=== PATIENT | female | born 1945 | race Caucasian/White ===

== ENCOUNTER → 2017-07-06 | Outpatient (CLI) | payer OTHER ==
[2014-11-03 09:35] VITALS: BP 155/65
[~2017-07-06] MED LIST: CHOL200074 PO; LISI1TAB5 PO; MOXI3DRO2 LEFTEYE; MOXI3DRO2 RIGHTEYE; NEPA1.7D LEFTEYE; NEPA1.7D RIGHTEYE; OMEP20CA5 PO; PRAV40TA2 PO; PRED5DRO16 LEFTEYE; PRED5DRO16 RIGHTEYE
--- NOTE | 2017-07-06 11:39 | RAD ---
EXAM: MAMMO SABINA SCREENING BILATERAL HISTORY: Routine Screening. COMPARISON: 07/04/2016 Standard mammographic views are obtained of the bilateral breasts. Additionally three-dimensional tomographic images obtained. This study was interpreted with the benefit of Computerized Aided Detection (CAD). FINDINGS: The breast parenchyma is heterogeneously dense, which could reduce sensitivity of mammography. Breast parenchyma level C.. There is no definite new suspicious spiculated mass or worrisome new cluster of microcalcifications. Repeat demonstration of some benign-appearing calcifications. IMPRESSION: No definite new suspicious mass. BI-RADS CATEGORY: 2 BENIGN FINDING RECOMMENDED FOLLOW-UP: 12M 12 MONTH FOLLOW-UP PQRS compliance statement: Patient information was entered into a reminder system with a target due date for the next mammogram. Mammography is a sensitive method for finding small breast cancers, but it does not detect them all and is not a substitute for careful clinical examination. A negative mammogram does not negate a clinically suspicious finding and should not result in delay in biopsying a clinically suspicious abnormality. "Our facility is accredited by the [employer] Mammography Program."
== END | disposition home or self-care (01) ==
LOC: MAMMO 09:01
PROVIDERS: ATTEND Family Medicine
DX: Z12.31 Encounter for screening mammogram for malignant neoplasm of breast (principal)
CPT/HCPCS: 77063; G0202; 77067

== ENCOUNTER 2017-09-10 09:55 | Inpatient (IN) | payer OTHER ==
[~2017-09-10] VITALS: Ht 160 cm; Wt 77.6 kg
--- NOTE | 2017-09-10 10:26 | PHYS DOC ---
Adult General Chief Complaint Chief Complaint: EARACHE/EAR PAIN HPI HPI CC: left facial rash and pain. History of present illness: 72-year-old female with a history of high blood pressure presenting to the emergency department today with a rash over the past 3 days on the side of her face and ear. The patient was seen on Sunday at her primary care physician's office who prescribed the patient prednisone and Keflex. She reports her rash and pain are worsening. She reports pain that is worse when she opens her mouth and difficulty putting her hearing aid in. The pain as a sharp shooting pain that is constant and nonradiating. The patient denies starting any medications prior to the rash formation. Past medical history diabetes high cholesterol high blood pressure and GERD Allergies reviewed Social history occasionally Review of systems is negative for chest pain shortness of breath abdominal pain nausea vomiting diaphoresis. She denies slurred speech difficulty speaking, vision changes, or any numbness weakness or tingling of her upper or lower extremities. She denies any gait disturbances. She denies any nuchal rigidity or decreased range of motion of the neck. All other review of systems is negative unless otherwise noted in history of present illness. ED course: 72-year-old female presenting to the emergency department today with cellulitis of the left side of the face including the ear. Patient is 2 days in to a course of Keflex for cellulitis of the left face and ear. On arrival the patient is afebrile with mild tachycardia likely secondary to pain. On examination the patient she has a macular rash involving the ear and part of the left face. On examination of the external auditory canal there is swelling with mild drainage. Tympanic membrane is normal. No evidence of otitis media. There is no fluctuance or mass in the postauricular region. Blood work obtained along with CT. work shows leukocytosis. EKG reviewed and unremarkable. CT the head shows no other acute underlying abscess formation or complications. I discussed the case with the patient's primary care physician Dr. IRIZARRY who would like to admit the patient for IV antibiotic therapy and monitoring. The patient was then admitted after getting IV Unasyn in the emergency department for further evaluation workup and care.I have assessed this patient clinically and believe that their condition requires an admission to the hospital. After consulting the admitting physician about this case, they have asked that I admit this patient to their service as an inpatient based on the clinical presentation and my impression. Review of Systems Review of Systems SEE ABOVE. Current Medications Current Medications Current Medications Medications (Trade) Dose Ordered Sig/Janet Start Time Stop Time Status Last Admin Dose Admin Ibuprofen (Motrin) 400 mg 1X ONCE 09/10/17 10:15 09/10/17 10:16 UNV Allergies Allergies Allergies Coded Allergies Type Severity Reaction Last Updated Verified acetaminophen Allergy Intermediate Nausea and Vomiting 10/09/14 Yes hydrocodone Allergy Intermediate Nausea and Vomiting 10/09/14 Yes tramadol Allergy Intermediate Nausea and Vomiting 10/09/14 Yes Physical Exam Physical Exam SEE ABOVE Constitutional: Well developed, well nourished, no acute distress, non-toxic appearance. [] HENT: Normocephalic, atraumatic, bilateral external ears normal, oropharynx moist, no oral exudates, nose normal. Patient has mild macular rash as above. Eyes: PERRLA, EOMI, conjunctiva normal, no discharge. [] Neck: Normal range of motion, no tenderness, supple, no stridor. Negative Brudzinski sign. Negative Kernig sign. Cardiovascular:mildly tachy with a regular rhythm. Lungs & Thorax: Bilateral breath sounds clear to auscultation [] Abdomen: Bowel sounds normal, soft, no tenderness, no masses, no pulsatile masses. [] Skin: Warm, dry, as above. Back: No tenderness, no CVA tenderness. [] Extremities: No tenderness, no cyanosis, no clubbing, ROM intact, no edema. [] Neurologic: Alert and oriented X 3, normal motor function, normal sensory function, no focal deficits noted. [] Psychologic: Affect normal, judgement normal, mood normal. [] EKG EKG [] Radiology/Procedures Radiology/Procedures [] Course & Med Decision Making Course & Med Decision Making Pertinent Labs and Imaging studies reviewed. (See chart for details) [] Dragon Disclaimer Dragon Disclaimer This electronic medical record was generated, in whole or in part, using a voice recognition dictation system. Departure Departure: Impression: Primary Impression: Cellulitis of ear Additional Impression: Cellulitis, face Disposition: ADMITTED INPATIENT Condition: STABLE Referrals: DALIA IRIZARRY MD (PCP) Patient Instructions: Cellulitis Problem Qualifiers RADHA CHISHOLM MD Sep 10, 2017 10:26
[2017-09-10] MEDS ORDERED: IV NORMAL SALINE 500ML 500 ML IV ONE (10:30)
[2017-09-10] MEDS ORDERED: AMPICILLIN/SULBACTAM 3 GM in IV NORMAL SALINE 100ML 100 ML IV ONE (10:30)
[2017-09-10 10:31] LABS: BASO # 0.1 x10^3/uL (0.0-0.2); BASO % 0 % (0-3); EOS # 0.2 x10^3/uL (0.0-0.7); EOS % 1 % (0-3); HEMATOCRIT 37.3 % (36.0-47.0); HEMOGLOBIN 12.6 g/dL (12.0-15.5); LYMPH # 2.4 x10^3/uL (1.0-4.8); LYMPH % 17 % (24-48); MEAN CORPUSCULAR HEMOGLOBIN 28 pg (25-35); MEAN CORPUSCULAR HGB CONC 34 g/dL (31-37); MEAN CORPUSCULAR VOLUME 84 fL (79-100); MONO # 1.1 x10^3/uL (0.0-1.1); MONO % 8 % (0-9); NEUT # 10.9 x10^3uL (1.8-7.7); NEUT % 74 % (31-73); PLATELET COUNT 281 x10^3/uL (140-400); RED BLOOD COUNT 4.42 x10^6/uL (3.50-5.40); RED CELL DISTRIBUTION WIDTH 14.1 % (11.5-14.5); WHITE BLOOD COUNT 14.7 x10^3/uL (4.0-11.0)
[2017-09-10 10:35] LABS: CALCIUM 9.9 mg/dL (8.5-10.1); CREATININE 1.2 mg/dL (0.6-1.0); GFR 44.3; POTASSIUM 3.5 mmol/L (3.5-5.1)
[2017-09-10] MEDS ORDERED: IBUPROFEN 400 MG TABLET. PO ONE (10:40)
[2017-09-10] MEDS ORDERED: AMPICILLIN/SULBACTAM IV Push 3 GM VIAL. IVP ONE (11:00)
[2017-09-10] MEDS ORDERED: IOHEXOL 300 MG/ML 75 ML VIAL. IV ONE (11:05)
--- NOTE | 2017-09-10 11:41 | EKG ---
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
--- NOTE | 2017-09-10 12:17 | RAD ---
CT HEAD WITHOUT CONTRAST History: left facial and ear cellulitis, eval for deeper abscess formation Comparison: None. Procedure: Axial images are obtained of the head from the skull base through the vertex with and without IV contrast. Axial imaging of the face was obtained with contrast. Coronal and sagittal reconstructions were performed. 70 mL of Omni 300 was utilized for the exam. Head Findings: No abnormal enhancement seen. Rodriguez-white matter differentiation is preserved. The ventricles and sulci are normal for the patient's age.. No mass-effect, midline shift, hemorrhage or obvious acute infarction is identified. Basilar cisterns are patent. Bone windows demonstrate no significant calvarial abnormality.The visualized paranasal sinuses appear clear. Mastoid air cells are well aerated. Face Findings: Mild left auricular skin thickening and enhancement. No organized fluid collection. There is no acute facial bone fracture. The paranasal sinuses are clear. The orbits are normal. The globes are intact. The nasal septum is mostly midline. The ostiomeatal complexes are narrow but patent. IMPRESSION: Mild left auricular skin thickening and enhancement consistent with given history of cellulitis. No organized fluid collection. PQRS Compliance Statement: One or more of the following individualized dose reduction techniques were utilized for this examination: 1. Automated exposure control 2. Adjustment of the mA and/or kV according to patient size 3. Use of iterative reconstruction technique
[2017-09-10] MEDS ORDERED: ONDANSETRON PF 4 MG/2 ML VIAL. IV PRN (12:30)
[2017-09-10 13:26] VITALS: BP 147/69
[2017-09-10 13:27] VITALS: BP 147/69
[2017-09-10] MEDS: IV NORMAL SALINE 1,000ML 1,000 ML IV SCH ×2 (13:27→22:51)
[2017-09-10] MEDS ORDERED: PRAV20TA2 PO (14:31)
[2017-09-10] MEDS ORDERED: METF500T4 PO (14:31)
[2017-09-10] MEDS ORDERED: CEPH500C PO (14:31)
[2017-09-10] MEDS ORDERED: PRED-220 PO (14:31)
[2017-09-10] MEDS ORDERED: LISI1TAB3 PO (14:31)
[2017-09-10 16:11] VITALS: BP 150/66
[2017-09-10] MEDS: IBUPROFEN 600 MG TABLET. PO PRN ×2 (17:36→23:50)
[2017-09-10] MEDS: AMPICILLIN/SULBACTAM IV Push 3 GM VIAL. IVP SCH ×2 (17:37→23:50)
[2017-09-10] MEDS ORDERED: AMPICILLIN/SULBACTAM 3 GM in IV NORMAL SALINE 100ML 100 ML IV SCH (18:00)
[2017-09-10 19:50] VITALS: BP 142/68
--- NOTE | 2017-09-10 20:42 | HP ---
ADMIT DATE: 09/10/2017 HISTORY OF PRESENT ILLNESS: A 72-year-old female came in through the Emergency Room. She has severe infection, cellulitis or erysipelas to her left side of her face. The patient apparently was treated as an outpatient, but failed that she has a lot of pain to that area. She has been given Keflex without any success; as a result of this, the patient was admitted to the hospital for further evaluation and treatment thereof for this. PAST MEDICAL HISTORY: Type 2 diabetes, hypercholesterolemia, hypertension, and GERD. Her other medical history shows bilateral hearing aids. 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 Medical symptoms, wears dentures and glasses, and pneumococcal vaccine up-to-date. We will go ahead and continue to monitor the patient accordingly, make further evaluation on her all those issues as well. ALLERGIES: HYDROCODONE, ACETAMINOPHEN and TRAMADOL. FAMILY HISTORY: Noncontributory. SOCIAL HISTORY: The patient denies smoking, alcohol or drug use. SOCIAL HISTORY: The patient denies smoking, alcohol or drug use. REVIEW OF SYSTEMS: The patient denies any recent weight loss, weight gain. She denies any headaches, vision change, blurred vision, double vision. She does have pain to the left side of her face, neck area consistent with erysipelas. LUNGS: The patient's lungs are clear to auscultation. CARDIOVASCULAR: Regular sinus rhythm, S1, S2, without murmur, rub, thrill, or extra heart sounds. ABDOMEN: Soft, nontender, no organomegaly. Positive bowel sounds, no hepatosplenomegaly, without clubbing, cyanosis or edema. NEUROLOGIC: The patient was alert and oriented x 3. The patient was admitted to the hospital for further evaluation. PHYSICAL EXAMINATION: VITAL SIGNS: His blood pressure was 147/70, respiratory rate 20, pulse 77, temperature 98, pulse has been as high as 102. HEENT: Atraumatic, normocephalic. Eyes: PERRLA without jaundice. Left side of the face swollen and tender redness. RESPIRATORY: Lungs are diminished, but clear. CARDIOVASCULAR: Regular sinus rhythm. ABDOMEN: Soft, nontender, no rebound or guarding. Positive bowel sounds, no hepatosplenomegaly. No extra clubbing, cyanosis, or edema. NEUROLOGIC: The patient was alert and oriented x 3. RECOMMENDATIONS: Erysipelas, cellulitis, failure of outpatient therapy, type 2 diabetes. The patient will be admitted, IV antibiotic therapy, continue with monitoring cellulitis and make further evaluation on her as indicated. DALIA IRIZARRY MD DR: URIEL/fabiano JOB#: [id number] / [id number]
[2017-09-10 22:34] VITALS: BP 133/92
[2017-09-11 05:11] VITALS: BP 133/88
[2017-09-11] MEDS: IBUPROFEN 600 MG TABLET. PO PRN ×2 (05:52→12:12)
[2017-09-11] MEDS: AMPICILLIN/SULBACTAM IV Push 3 GM VIAL. IVP SCH ×2 (05:52→12:07)
[2017-09-11] MEDS: IV NORMAL SALINE 1,000ML 1,000 ML IV SCH (05:53)
[2017-09-11 06:28] LABS: BASO # 0.1 x10^3/uL (0.0-0.2); BASO % 1 % (0-3); EOS # 0.3 x10^3/uL (0.0-0.7); EOS % 3 % (0-3); HEMATOCRIT 32.2 % (36.0-47.0); HEMOGLOBIN 10.8 g/dL (12.0-15.5); LYMPH % 34 % (24-48); MEAN CORPUSCULAR HEMOGLOBIN 29 pg (25-35); MEAN CORPUSCULAR HGB CONC 34 g/dL (31-37); MEAN CORPUSCULAR VOLUME 85 fL (79-100); MONO # 0.7 x10^3/uL (0.0-1.1); MONO % 7 % (0-9); NEUT # 4.9 x10^3uL (1.8-7.7); NEUT % 55 % (31-73); PLATELET COUNT 250 x10^3/uL (140-400); RED CELL DISTRIBUTION WIDTH 14.4 % (11.5-14.5); WHITE BLOOD COUNT 8.9 x10^3/uL (4.0-11.0)
[2017-09-11 06:33] LABS: CALCIUM 8.6 mg/dL (8.5-10.1); CREATININE 0.9 mg/dL (0.6-1.0); GFR 61.7; POTASSIUM 3.8 mmol/L (3.5-5.1)
[2017-09-11] MEDS ORDERED: hydroCHLOROthiazide 12.5 MG CAPSULE PO SCH (09:00)
[2017-09-11] MEDS ORDERED: LISINOPRIL 10 MG TABLET PO SCH (09:00)
[2017-09-11 11:03] VITALS: BP 118/80
[2017-09-11] MEDS ORDERED: AMOX1TAB61 PO (13:44)
[2017-09-11 17:08] LABS: HEMOGLOBIN A1C 5.8 % (4.8-5.6)
== END 2017-09-11 14:45 | disposition home health service (06) | DRG 872 ==
LOC: ER 09:55 → 1 SOUTH 13:08
PROVIDERS: ADMIT Family Medicine; ATTEND Family Medicine
DX: A41.9 Sepsis, unspecified organism (principal); L03.211 Cellulitis of face; E11.9 Type 2 diabetes mellitus without complications; A46 Erysipelas; E78.00 Pure hypercholesterolemia, unspecified; E66.9 Obesity, unspecified; I10 Essential (primary) hypertension; H60.12 Cellulitis of left external ear; M19.90 Unspecified osteoarthritis, unspecified site; K21.9 Gastro-esophageal reflux disease without esophagitis; Z87.442 Personal history of urinary calculi; Z90.710 Acquired absence of both cervix and uterus; Z68.30 Body mass index [BMI] 30.0-30.9, adult; Z88.8 Allergy status to other drugs, medicaments and biological substances
CPT/HCPCS: 36415; 70496; 80048; 83036; 83605; 84484; 85025; 85651; 93005; 96361; 96374; J0295; J7040; Q9967; 99285-25; J7030

== ENCOUNTER → 2018-07-08 | Outpatient (CLI) | payer OTHER ==
[~2018-07-08] MED LIST changes: +AMOX1TAB61 PO; +CEPH500C PO; +LISI1TAB3 PO; +METF500T16 PO; +PRAV20TA2 PO; +PRED-220 PO
--- NOTE | 2018-07-08 09:25 | RAD ---
History: Routine Screening. Technique: Bilateral digital mammographic routine views were obtained with CAD - computer aided detection. Comparison: Previous mammogram from 2017 and 2014. Findings: Breast Tissue Density C: The breast tissue is heterogeneously dense. Mammography is less sensitive in areas of dense tissue. There are no suspicious masses, microcalcifications or areas of architectural distortion. Benign-appearing calcifications in the right breast. Impression: No mammographic evidence of malignancy. Stable mammogram. BI-RADS Category 2: Benign findings. Continued annual screening. . A mammogram does not have 100% sensitivity and therefore a negative imaging study should not delay further work up of a suspicious abnormality. The patient will receive a letter with the results in the mail. Patient information is entered into the reminder system with a target due date for the next screening mammogram. The patient will receive a reminder. "Our facility is accredited by the [employer] Mammography Program."
== END | disposition home or self-care (01) ==
LOC: MAMMO 08:14
PROVIDERS: ATTEND Family Medicine
DX: Z12.31 Encounter for screening mammogram for malignant neoplasm of breast (principal)
CPT/HCPCS: 77067

== ENCOUNTER 2021-06-24 14:23 | Emergency (ER) | payer MEDICARE, OTHER ==
[~2021-06-24] VITALS: Ht 160 cm; Wt 73.0 kg
[~2021-06-24 14:23] MED LIST changes: +LISI1TAB23 PO; -LISI1TAB3 PO; +LISI1TAB37 PO; -LISI1TAB5 PO; +MOXI3DRO18 LEFTEYE; +MOXI3DRO18 RIGHTEYE; -MOXI3DRO2 LEFTEYE; -MOXI3DRO2 RIGHTEYE
--- NOTE | 2021-06-24 14:38 | PHYS DOC ---
Past History Past Medical History: Diabetes, Hypertension Past Surgical History: Hip Replacement, Hysterectomy Alcohol Use: None Drug Use: None Adult General Chief Complaint Chief Complaint: CHEST PAIN HPI HPI Patient is a 76-year-old female presenting for chest pain. Onset was 3 hours prior to arrival. Patient reports she was in her living room and was getting up to mobilize around the house when she developed substernal chest pressure that radiated to her back. Reports it is 8/10 in severity pressure that has been constant and took her breath away. Nothing known makes better or worse. She reports history of high blood pressure and hypercholesterol for which she is on medications, has been compliant with these and has had no major changes in baseline health. She is fully vaccinated against COVID-19, denies any recent mechanism of injury, trauma, ingestion, travel or other potential exposure. She has no known history of cardiovascular disease or blood clots Review of Systems Review of Systems Fourteen body systems of review of systems have been reviewed. See HPI for pertinent positives and negative responses, other [place] all other systems are negative, non-pertinent or non-contributory Allergies Allergies Allergies Coded Allergies Type Severity Reaction Last Updated Verified acetaminophen Allergy Intermediate Nausea and Vomiting 10/09/14 Yes hydrocodone Allergy Intermediate Nausea and Vomiting 10/09/14 Yes tramadol Allergy Intermediate Nausea and Vomiting 10/09/14 Yes Physical Exam Physical Exam Constitutional: Well developed, well nourished, appears anxious but is non-toxic in appearance. HENT: Normocephalic, atraumatic, bilateral external ears normal, oropharynx moist, no oral exudates, nose normal. Eyes: PERRLA, EOMI, conjunctiva normal, no discharge. Neck: Normal range of motion, no tenderness, supple, no stridor. Cardiovascular: Heart rate regular, sinus rhythm, no murmurs rubs or gallops Lungs & Thorax: Bilateral breath sounds clear to auscultation Abdomen: Bowel sounds normal, soft, no tenderness, no masses, no pulsatile masses. Nonsurgical abdomen, no peritoneal signs Skin: Warm, dry, no erythema, no rash. Back: No tenderness, no CVA tenderness. Extremities: No tenderness, no cyanosis, no clubbing, ROM intact, no edema. Neurologic: Alert and oriented X 3, grossly normal motor & sensory function, no focal deficits noted. Psychologic: Anxious affect and mood Current Patient Data Vital Signs Vital Signs Date Time Temp Pulse Resp B/P (MAP) Pulse Ox O2 Delivery O2 Flow Rate FiO2 06/24/21 14:29 97.8 90 20 185/84 (117) 99 Room Air Lab Results Laboratory Tests Test 06/24/21 14:40 White Blood Count 12.1 x10^3/uL Red Blood Count 3.99 x10^6/uL Hemoglobin 10.6 g/dL Hematocrit 32.4 % Mean Corpuscular Volume 81 fL Mean Corpuscular Hemoglobin 27 pg Mean Corpuscular Hemoglobin Concent 33 g/dL Red Cell Distribution Width 14.9 % Platelet Count 368 x10^3/uL Neutrophils (%) (Auto) 64 % Lymphocytes (%) (Auto) 26 % Monocytes (%) (Auto) 8 % Eosinophils (%) (Auto) 2 % Basophils (%) (Auto) 1 % Neutrophils # (Auto) 7.8 x10^3uL Lymphocytes # (Auto) 3.1 x10^3/uL Monocytes # (Auto) 0.9 x10^3/uL Eosinophils # (Auto) 0.2 x10^3/uL Basophils # (Auto) 0.1 x10^3/uL Prothrombin Time 9.9 SEC Prothromb Time International Ratio 1.0 Activated Partial Thromboplast Time 25 SEC Sodium Level 138 mmol/L Potassium Level 3.4 mmol/L Chloride Level 101 mmol/L Carbon Dioxide Level 25 mmol/L Anion Gap 12 Blood Urea Nitrogen 17 mg/dL Creatinine 1.5 mg/dL Estimated GFR (Cockcroft-Gault) 33.9 BUN/Creatinine Ratio 11 Glucose Level 194 mg/dL Calcium Level 10.4 mg/dL Total Bilirubin 0.4 mg/dL Aspartate Amino Transf (AST/SGOT) 13 U/L Alanine Aminotransferase (ALT/SGPT) 19 U/L Alkaline Phosphatase 109 U/L Troponin I Quantitative < 0.017 ng/mL DD-Www-F-Type Natriuretic Peptide 67 pg/mL Total Protein 8.0 g/dL Albumin 3.5 g/dL Albumin/Globulin Ratio 0.8 Current Medications Medications (Trade) Dose Ordered Sig/Janet Route PRN Reason Start Time Stop Time Status Last Admin Dose Admin Iohexol (Omnipaque 350 Mg/ml) 100 ml 1X ONCE IV 06/24/21 15:00 06/24/21 15:01 DC 06/24/21 15:20 Info (Do NOT chart on this entry -- for MONITORING) 1 each PRN DAILY PRN MC SEE COMMENTS 06/24/21 15:00 06/26/21 14:59 Aspirin (Aspirin Chewable) 162 mg 1X ONCE PO 06/24/21 15:00 06/24/21 15:01 DC 06/24/21 14:59 Nitroglycerin (Nitrostat) 0.4 mg PRN Q5MIN PRN SL CHEST PAIN 06/24/21 15:00 06/24/21 15:16 Sodium Chloride 1,000 ml @ 1,000 mls/hr 1X ONCE IV 06/24/21 15:15 06/24/21 16:14 06/24/21 15:33 EKG EKG EKG ordered and interpreted by myself at 1436 hrs. is sinus rhythm at 91 bpm, unremarkable intervals, no axis deviation, no obvious ischemic findings, no STEMI Radiology/Procedures Radiology/Procedures AP chest. HISTORY: Chest pressure AP view was taken of the chest. There is arthritis in both shoulders. Lungs are free of infiltrates. Heart is normal in size. There is no effusion. IMPRESSION: 1. No acute infiltrates. Electronically signed by: Isaiah Morgan MD (06/24/2021 3:10 PM) [facility] /////////////////////////// CTA OF THE CHEST WITH AND WITHOUT CONTRAST Clinical indications: Substernal chest pain. Technique: Noncontrast axial localizer was performed. After IV infusion of 75 cc of Omnipaque 350, helical CT scanning of the chest was performed using the CTA pulmonary embolism protocol. Coronal and sagittal MIP reconstructions were generated. PQRS compliance Statement One or more of the following individualized dose reduction techniques were utilized for this study: 1. Automated exposure control 2. Adjustment of the mA and/or kV according to patient size 3. Use of iterative reconstruction technique Comparison: None available Findings: No pulmonary embolism is evident. No focal aneurysmal dilatation or dissection of the thoracic aorta is seen. Calcified atheromatous disease of the coronary arteries is seen. Heart size is normal and no pericardial effusion is seen. Tiny hiatal hernia is evident. No enlarged thoracic lymphadenopathy is evident. No adrenal mass is seen. No pleural effusion or pneumothorax is seen. No lung mass or lung consolidation is seen. The proximal bronchial tree is patent. No adrenal mass is evident. No lytic process is seen. IMPRESSION: No pulmonary embolism. No acute infiltrate. Tiny hiatal hernia. Calcified atheromatous disease of the coronary arteries. Electronically signed by: Nilton Melissa MD (06/24/2021 3:54 PM) [id number] Heart Score C/O Chest Pain: Yes HEART Score for Chest Pain: HEART Score for Chest Pain Response (Comments) Value History Moderately Suspicious 1 ECG Normal 0 Age > 65 2 Risk Factors 1 or 2 Risk Factors 1 Troponin < Normal Limit 0 Total 4 Risk Factors: Risk Factors: DM, Current or recent (<one month) smoker, HTN, HLP, family history of CAD, obesity. Risk Scores: Risk Factors: DM, Current or recent (<one month) smoker, HTN, HLP, family history of CAD, obesity. Course & Med Decision Making Course & Med Decision Making ABCs unremarkable. I disclosed entirety of ER findings and discussed most likely diagnosis of chest pain and unknown etiology. Other diagnoses were discussed with patient such as newly diagnosed hiatal hernia, ACS, pulmonary embolism, thoracic aneurysm and other concerning life-threatening diagnoses but all deemed less likely causes of patient's presentation. Plan of care discussed at length with need for close outpatient follow-up to review today's ER visit stressed. Strict return precautions were also discussed at length with good understanding verbalized by patient. Patient voiced understanding and agreement with the plan. Patient knows to come back for repeat evaluation if concerning signs or symptoms present prior to outpatient follow-up. Hemodynamically stable, ambulatory and well-appearing at time of disposition. Dragon Disclaimer Dragon Disclaimer This electronic medical record was generated, in whole or in part, using a voice recognition dictation system. Departure Departure: Impression: Primary Impression: Chest pain, unspecified Additional Impression: Hiatal hernia Disposition: HOME / SELF CARE / HOMELESS Condition: STABLE Referrals: DALIA IRIZARRY MD (PCP) Additional Instructions: You were seen for chest pain. Your workup did not show any acute abnormalities today, but does not indicate that you do not have underlying cardiovascular disease. You do need to follow up with your primary doctor and potentially a battery container inspector for further evaluation and treatment. It was also found that you have a small hiatal hernia that could be causing your symptoms. You were given medication in the ER with a short-term prescription of stomach medication to see if this assists in symptom resolution. You should return to the ED if you develop worsening chest pain, shortness of breath, fever, abnormal sweating, leg swelling, or any other new or concerning symptoms. Scripts Famotidine (FAMOTIDINE) 40 Mg Tablet 1 TAB PO DAILY for HIATAL HERNIA, #30 TAB 0 Refills Prov: JOSE MANUEL LUNA DO 06/24/21 Problem Qualifiers JOSE MANUEL LUNA DO Jun 24, 2021 14:38
[2021-06-24] MEDS ORDERED: ASPIRIN CHEWABLE 81 MG TABLET. PO ONE (15:00)
[2021-06-24] MEDS ORDERED: IOHEXOL 350 MG/ML 100 ML VIAL. IV ONE (15:00)
[2021-06-24] MEDS ORDERED: CONTRAST GIVEN. MC PRN (15:00)
[2021-06-24 15:01] LABS: BASO # 0.1 x10^3/uL (0.0-0.2); BASO % 1 % (0-3); EOS # 0.2 x10^3/uL (0.0-0.7); EOS % 2 % (0-3); HEMATOCRIT 32.4 % (36.0-47.0); HEMOGLOBIN 10.6 g/dL (12.0-15.5); LYMPH # 3.1 x10^3/uL (1.0-4.8); LYMPH % 26 % (24-48); MEAN CORPUSCULAR HEMOGLOBIN 27 pg (25-35); MEAN CORPUSCULAR HGB CONC 33 g/dL (31-37); MEAN CORPUSCULAR VOLUME 81 fL (79-100); MONO # 0.9 x10^3/uL (0.0-1.1); MONO % 8 % (0-9); NEUT # 7.8 x10^3uL (1.8-7.7); NEUT % 64 % (31-73); PLATELET COUNT 368 x10^3/uL (140-400); RED BLOOD COUNT 3.99 x10^6/uL (3.50-5.40); RED CELL DISTRIBUTION WIDTH 14.9 % (11.5-14.5); WHITE BLOOD COUNT 12.1 x10^3/uL (4.0-11.0)
[2021-06-24] MEDS: NITROGLYCERIN SUBLINGUAL 0.4 MG BOTTLE OF 25. SL PRN ×3 (15:01→15:16)
[2021-06-24 15:09] LABS: CALCIUM 10.4 mg/dL (8.5-10.1); CREATININE 1.5 mg/dL (0.6-1.0); GFR 33.9; POTASSIUM 3.4 mmol/L (3.5-5.1)
--- NOTE | 2021-06-24 15:12 | RAD ---
AP chest. HISTORY: Chest pressure AP view was taken of the chest. There is arthritis in both shoulders. Lungs are free of infiltrates. Heart is normal in size. There is no effusion. IMPRESSION: 1. No acute infiltrates. Electronically signed by: Isaiah Morgan MD (06/24/2021 3:10 PM) [facility]
[2021-06-24] MEDS ORDERED: IV NORMAL SALINE 1,000ML 1,000 ML IV ONE (15:15)
[2021-06-24 15:21] LABS: ALBUMIN 3.5 g/dL (3.4-5.0); ALBUMIN/GLOBULIN RATIO 0.8 (1.0-1.7); TOTAL BILIRUBIN 0.4 mg/dL (0.2-1.0)
--- NOTE | 2021-06-24 15:57 | RAD ---
CTA OF THE CHEST WITH AND WITHOUT CONTRAST Clinical indications: Substernal chest pain. Technique: Noncontrast axial localizer was performed. After IV infusion of 75 cc of Omnipaque 350, he lical CT scanning of the chest was performed using the CTA pulmonary embolism protocol. Coronal and s agittal MIP reconstructions were generated. PQRS compliance Statement One or more of the following individualized dose reduction techniques were utilized for this study: 1. Automated exposure control 2. Adjustment of the mA and/or kV according to patient size 3. Use of iterative reconstruction technique Comparison: None available Findings: No pulmonary embolism is evident. No focal aneurysmal dilatation or dissection of the thora cic aorta is seen. Calcified atheromatous disease of the coronary arteries is seen. Heart size is nor mal and no pericardial effusion is seen. Tiny hiatal hernia is evident. No enlarged thoracic lymphade nopathy is evident. No adrenal mass is seen. No pleural effusion or pneumothorax is seen. No lung mas s or lung consolidation is seen. The proximal bronchial tree is patent. No adrenal mass is evident. N o lytic process is seen. IMPRESSION: No pulmonary embolism. No acute infiltrate. Tiny hiatal hernia. Calcified atheromatous disease of the coronary arteries. Electronically signed by: Nilton Melissa MD (06/24/2021 3:54 PM) [id number]
[2021-06-24] MEDS ORDERED: FAMO40TA4 PO (16:14)
[2021-06-24 16:15] VITALS: BP 140/82
[2021-06-24] MEDS ORDERED: FAMOTIDINE 20 MG/2 ML VIAL IVP ONE (16:15)
--- NOTE | 2021-06-24 22:44 | EKG ---
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
== END 2021-06-24 16:35 | disposition home or self-care (01) ==
LOC: ER 14:23
DX: R07.89 Other chest pain (principal); K44.9 Diaphragmatic hernia without obstruction or gangrene; E11.9 Type 2 diabetes mellitus without complications; I10 Essential (primary) hypertension; Z88.6 Allergy status to analgesic agent; Z88.5 Allergy status to narcotic agent; Z90.710 Acquired absence of both cervix and uterus; Z20.822 Contact with and (suspected) exposure to COVID-19
CPT/HCPCS: 71045; 71275; 80053; 83880; 84484; 85025; 85610; 85730; 87426; 93005; 96361; 96374; 99285; C9803; J3490; J7030; Q9967; U0003

== ENCOUNTER → 2021-11-15 | Outpatient (CLI) | payer MEDICARE ==
[~2021-11-15] MED LIST changes: +FAMO40TA4 PO; -LISI1TAB23 PO; +LISI1TAB35 PO
[2021-11-15 17:22] LABS: ALBUMIN 3.7 g/dL (3.4-5.0); C REACTIVE PROTEIN 94.1 mg/L (0-3.3); CALCIUM 10.2 mg/dL (8.5-10.1); CREATININE 1.7 mg/dL (0.6-1.0); GFR 29.3; MAGNESIUM 2.1 mg/dL (1.8-2.4); PHOSPHORUS 3.7 mg/dL (2.6-4.7); POTASSIUM 3.9 mmol/L (3.5-5.1); URIC ACID 11.2 mg/dL (2.6-6.0)
== END ==
LOC: LAB 15:51
PROVIDERS: ATTEND Nurse Practitioner Adult Health
DX: R22.31 Localized swelling, mass and lump, right upper limb (principal); N25.9 Disorder resulting from impaired renal tubular function, unspecified; E79.0 Hyperuricemia without signs of inflammatory arthritis and tophaceous disease; G47.62 Sleep related leg cramps
CPT/HCPCS: 36415; 80069; 82553; 83735; 84550; 85651; 86140; 86431